=== PATIENT | female | born 1995 | race African-American/Black ===

== ENCOUNTER 2017-09-28 13:47 | Emergency (ER) | payer MEDICAID, OTHER ==
[~2017-09-28] VITALS: Ht 170.2 cm; Wt 53.0 kg
[2017-09-28 13:50] VITALS: BP 100/53
== END 2017-09-28 14:02 | disposition home or self-care (01) ==
LOC: ER 13:47
DX: S61.216D Laceration without foreign body of right little finger without damage to nail, subsequent encounter (principal); X58.XXXD Exposure to other specified factors, subsequent encounter
CPT/HCPCS: 99281; Z7610

== ENCOUNTER 2019-09-15 10:29 | Emergency (ER) | payer MEDICAID ==
[~2019-09-15] VITALS: Ht 165.1 cm; Wt 61.0 kg
[2019-09-15] MEDS ORDERED: HALOPERIDOL LACTATE 5MG/ML VIAL IM ONE (11:00)
[2019-09-15] MEDS ORDERED: LORAZEPAM 2MG/ML CPJ IV ONE (11:00)
[2019-09-15] MEDS ORDERED: DIPHENHYDRAMINE 50MG/ML VIAL IV ONE (11:00)
[2019-09-15 12:11] LABS: HEMATOCRIT. 41.4 % (36.0-48.0); HEMOGLOBIN. 13.7 g/dL (12.0-16.0); MEAN CORPUSCULAR HEMOGLOBIN 29.1 pg (28.0-32.0); MEAN CORPUSCULAR VOLUME 87.8 fL (81.0-99.0); MEAN PLATELET VOLUME 7.2 fl (7.4-10.4); PLATELET 264 x1000/uL (130-400); RED BLOOD CELL COUNT 4.71 mill/uL (4.2-5.4); RED CELL DISTRIBUTION WIDTH 13.4 % (11.6-14.6)
[2019-09-15 12:18] LABS: CHLORIDE 111 mEq/L (98-107)
[2019-09-15 12:21] LABS: ETHANOL BLOOD < 10 mg/dL
[2019-09-15 12:37] LABS: CLARITY URINE CLOUDY (CLEAR); COLOR URINE YELLOW (YELLOW); KETONES URINE NEGATIVE (NEGATIVE); LEUKOCYTE ESTERASE URINE NEGATIVE (NEGATIVE); NITRITE URINE NEGATIVE (NEGATIVE); OCCULT BLOOD URINE NEGATIVE (NEGATIVE); PH URINE 6.5 (4.5-8.0); PROTEIN URINE TRACE (NEGATIVE); SPECIFIC GRAVITY URINE 1.009 (1.005-1.030)
[2019-09-15 13:01] LABS: *COCAINE SCREEN URINE NEGATIVE (NEGATIVE)
[2019-09-15 13:02] LABS: *BARBITURATES SCREEN URINE NEGATIVE (NEGATIVE); METHADONE URINE SCREEN NEGATIVE (NEGATIVE); OPIATES URINE SCREEN NEGATIVE (NEGATIVE); PHENCYCLIDINE URINE SCREEN NEGATIVE (NEGATIVE)
[2019-09-15 13:03] LABS: *AMPHETAMINES SCREEN URINE NEGATIVE (NEGATIVE); *BENZODIAZEPINES SCREEN URINE NEGATIVE (NEGATIVE)
[2019-09-15 13:04] LABS: CANNABINOID URINE SCREEN PRESUMTIVE POSITIVE (NEGATIVE)
[2019-09-15 14:10] LABS: ATYPICAL LYMPHOCYTES 1; PLATELET ESTIMATE NORMAL
[2019-09-16 08:45] VITALS: BP 108/72
== END 2019-09-16 08:47 | disposition home or self-care (01) ==
LOC: ER 11:16
DX: R51 Headache (principal); H57.12 Ocular pain, left eye; F12.929 Cannabis use, unspecified with intoxication, unspecified; F91.8 Other conduct disorders; S02.2XXA Fracture of nasal bones, initial encounter for closed fracture; Y04.0XXA Assault by unarmed brawl or fight, initial encounter; Y93.89 Activity, other specified; R45.1 Restlessness and agitation; Y92.018 Other place in single-family (private) house as the place of occurrence of the external cause; Z62.820 Parent-biological child conflict; Z59.0 Homelessness
CPT/HCPCS: 36415; 70450; 70480; 80053; 80305; 80320; 81003; 81025; 82962; 85025; 96372; 96374; 96375; 99285; J1200; J1630; J2060; G0480

== ENCOUNTER 2022-01-22 12:52 | Emergency (ER) | payer OTHER, MEDICAID ==
[~2022-01-22] VITALS: Ht 170.2 cm; Wt 69.0 kg
[2022-01-22 13:05] VITALS: BP 126/82
== END 2022-01-22 17:06 | disposition left against medical advice (07) ==
LOC: ER 12:52
DX: Z53.21 Procedure and treatment not carried out due to patient leaving prior to being seen by health care provider (principal)

== ENCOUNTER 2024-10-28 04:58 | Emergency (ER) | payer MEDICAID, OTHER ==
[~2024-10-28] VITALS: Ht 170.2 cm; Wt 71.0 kg
[2024-10-28 05:14] VITALS: O2SAT 97
[2024-10-28] MEDS: IPRATROPIUM BROMIDE (0.02%) 0.5MG/2.5ML NEB HHN STA (06:11)
[2024-10-28] MEDS: ALBUTEROL (0.083%) 2.5MG/3ML NEB HHN STA (06:11)
[2024-10-28] MEDS: PREDNISONE 20MG TABLET PO STA (06:19)
[2024-10-28 06:51] VITALS: TEMP 36.7
[2024-10-28] MEDS ORDERED: ALBU90AE INH (08:06)
[2024-10-28] MEDS ORDERED: P50 PO (08:06)
[2024-10-28 08:39] VITALS: BP 119/72; PULSE 112; RESP 18; O2SAT 99
[2024-10-28] MEDS ORDERED: ALBU05 NEB (08:48)
== END 2024-10-28 08:51 | disposition home or self-care (01) ==
LOC: ER 04:58
DX: J45.901 Unspecified asthma with (acute) exacerbation (principal); F12.90 Cannabis use, unspecified, uncomplicated; Z79.899 Other long term (current) drug therapy; Z79.52 Long term (current) use of systemic steroids
CPT/HCPCS: 81025; 99285; J7512; Z7610

== ENCOUNTER 2025-02-17 15:33 | Emergency (ER) | payer MEDICAID ==
[~2025-02-17] VITALS: Ht 170.2 cm; Wt 74.0 kg
[~2025-02-17 15:33] MED LIST: ALBU05 NEB; ALBU90AE INH; P50 PO
[2025-02-17 15:38] VITALS: BP 111/71; PULSE 112; RESP 20; TEMP 36.7; O2SAT 100
== END 2025-02-17 16:09 | disposition left against medical advice (07) ==
LOC: ER 15:33
DX: N93.9 Abnormal uterine and vaginal bleeding, unspecified (principal)
CPT/HCPCS: 99281; 99282